=== PATIENT | male | born 1970 | race Two or more races ===

== ENCOUNTER 2024-06-16 08:50 | Outpatient (CLI) | payer OTHER | END 2024-06-16 09:05 | disposition home or self-care (01) | LOC: SONOGRAMA 08:50 | PROVIDERS: ATTEND Physical Medicine & Rehabilitation Hospice and Palliative Medicine | DX: M79.602 Pain in left arm (principal); S46.302A Unspecified injury of muscle, fascia and tendon of triceps, left arm, initial encounter ==